=== PATIENT | male | born 1960 | race Caucasian/White ===

== ENCOUNTER 2017-03-03 04:38 | Inpatient (IN) | payer OTHER ==
[~2017-03-03] VITALS: Ht 170.2 cm; Wt 81.8 kg
[2017-03-03] VITALS (24 sets, daily range): BP systolic 80–125; BP diastolic 48–91; PULSE 43–69; RESP 13–22; Ht 170.2 cm; Wt 81.8 kg
[2017-03-03] MEDS ORDERED: SOD CHLORIDE 0.9% 500 ML IV STA (04:42)
[2017-03-03] MEDS ORDERED: ASPIRIN 81 MG TAB PO STA (04:42)
[2017-03-03 05:13] LABS: ADD SCAN DIFF NO
[2017-03-03 05:15] LABS: BASOPHIL # 0.1 10^3/ul (0.0-0.1); BASOPHILS % 0.5 % (0.0-2.0); EOSINOPHILS # 0.2 10^3/ul (0.0-0.5); EOSINOPHILS % 1.4 % (0.0-7.0); HEMATOCRIT 47.7 % (42.0-52.0); HEMOGLOBIN 15.5 g/dl (14.0-18.0); LYMPHOCYTES % 24.6 % (15.0-51.0); MEAN CORPUSCULAR HEMOGLOBIN 31.1 pg (29.0-33.0); MEAN CORPUSCULAR HGB CONC 32.5 g/dl (32.0-37.0); MEAN CORPUSCULAR VOLUME 95.6 fl (82.0-101.0); MEAN PLATELET VOLUME 12.3 fl (7.4-10.4); MONOCYTE # 0.8 10^3/ul (0.3-0.9); MONOCYTES % 6.1 % (0.0-11.0); NEUTROPHIL # 8.2 10^3/ul (1.6-7.5); NEUTROPHILS % 67.2 % (39.0-77.0); PLATELET COUNT 177 10^3/UL (140-415); RED BLOOD COUNT 4.99 10^6/ul (4.70-6.10); RED CELL DISTRIBUTION WIDTH 14.5 % (11.5-14.5); WHITE BLOOD COUNT 12.3 10^3/ul (4.8-10.8)
[2017-03-03] MEDS ORDERED: morphine 4 MG/ML VIAL IV STA ×2 (05:29→07:21)
[2017-03-03] MEDS ORDERED: NITROGLYCERIN (SL) 0.4 MG TAB SL ONE ×2 (05:30→11:30)
--- NOTE | 2017-03-03 05:50 | RADRPT ---
PROCEDURE: Chest. CLINICAL INDICATION: Chest pain. TECHNIQUE: Single frontal view of the chest was obtained. COMPARISON: None. FINDINGS: The cardiac silhouette is within normal limits. The aortic arch is unremarkable. There is no focal consolidation, vascular congestion or pleural effusion. There is no pneumothorax. IMPRESSION: No evidence for active cardiopulmonary disease. .Michael Anderson MD, MD Date Time Electronically viewed and signed by .Michael Anderson MD, on 03/03/2017 05:50 .T/
--- NOTE | 2017-03-03 05:52 | ERA ---
ER Documentation Chief Complaint Date/Time DATE: 03/03/17 TIME: 05:50 Chief Complaint c/o chest pain, heart rate at 38 and b/p in 70's according to EMS HPI This 56-year-old male brought in by paramedics for sudden onset chest pain 2 hours prior as well as a heart rate in the 20s and 30s in the ambulance which they gave 2 doses of 1 mg atropine in the ambulance which change the patient's heart rate and just prior to arrival relieved his chest pain and shortness of breath. He also had nausea with this. He has a history of stents. Denies fever and chills per ROS All systems reviewed and are negative except as per history of present illness. Medications Home Meds No Active Prescriptions or Reported Meds Allergies Allergies: Coded Allergies: No Known Allergy (Unverified , 03/03/17) PMhx/Soc History of Surgery: Yes (abdominal, stents) Anesthesia Reaction: No Hx Neurological Disorder: No Hx Respiratory Disorders: No Hx Cardiac Disorders: Yes (htn) Hx Psychiatric Problems: No Hx Miscellaneous Medical Probl: No Hx Alcohol Use: Yes (quit 20 years ago) Hx Substance Use: No Hx Tobacco Use: Yes Smoking Status: Current every day smoker Physical Exam Vitals Vital Signs Date Time Temp Pulse Resp B/P Pulse Ox O2 Delivery O2 Flow Rate FiO2 03/03/17 05:54 81 18 119/83 98 Room Air 03/03/17 05:05 98.0 100 22 134/80 100 03/03/17 04:58 Nasal Cannula 2 Physical Exam Const: [] Mild distress, appears uncomfortable Head: Atraumatic Eyes: Normal Conjunctiva ENT: Normal External Ears, Nose and Mouth. Neck: Full range of motion..~ No meningismus. Resp: Clear to auscultation bilaterally Cardio: Regular tachycardia, no murmurs Abd: Soft, non tender, non distended. Normal bowel sounds Skin: No petechiae or rashes Back: No midline or flank tenderness Ext: No cyanosis, or edema Neur: Awake and alert and oriented 3, no focal deficits Psych: Normal Mood and Affect Result Diagram: 03/03/17 0450 03/03/17 0454 Results 24 hrs Laboratory Tests Test 03/03/17 04:50 03/03/17 04:54 White Blood Count 12.310^3/ul Red Blood Count 4.9910^6/ul Hemoglobin 15.5g/dl Hematocrit 47.7% Mean Corpuscular Volume 95.6fl Mean Corpuscular Hemoglobin 31.1pg Mean Corpuscular Hemoglobin Concent 32.5g/dl Red Cell Distribution Width 14.5% Platelet Count 95097^3/UL Mean Platelet Volume 12.3fl Neutrophils % 67.2% Lymphocytes % 24.6% Monocytes % 6.1% Eosinophils % 1.4% Basophils % 0.5% Nucleated Red Blood Cells % 0.0/100WBC Neutrophils # 8.210^3/ul Lymphocytes # 3.010^3/ul Monocytes # 0.810^3/ul Eosinophils # 0.210^3/ul Basophils # 0.110^3/ul Nucleated Red Blood Cells # 0.010^3/ul Prothrombin Time 13.1Sec Prothrombin Time Ratio 1.0 INR International Normalized Ratio 0.99 Activated Partial Thromboplast Time 27.3Sec Sodium Level 139mmol/L Potassium Level 4.4mmol/L Chloride Level 112mmol/L Carbon Dioxide Level 21mmol/L Anion Gap 10 Blood Urea Nitrogen 19mg/dl Creatinine 1.37mg/dl Glucose Level 114mg/dl Calcium Level 8.5mg/dl Troponin I 0.344ng/ml B-Type Natriuretic Peptide 276PG/ML Current Medications Medications (Trade) Dose Ordered Sig/Pedro Route PRN Reason Start Time Stop Time Status Last Admin Dose Admin Sodium Chloride (NS) 500 ml @ 500 mls/hr Q1H STAT IV 03/03/17 04:42 03/03/17 05:41 DC 03/03/17 04:48 Aspirin (Aspirin) 162 mg ONCE STAT PO 03/03/17 04:42 03/03/17 04:43 DC 03/03/17 04:47 Nitroglycerin (Nitroglycerin (Sl Tab) 0.4 Mg) 1 tab ONCE ONCE SL 03/03/17 05:30 03/03/17 05:31 DC 03/03/17 05:21 Morphine Sulfate (morphine) 4 mg ONCE STAT IV 03/03/17 05:29 03/03/17 05:30 DC 03/03/17 05:47 Ondansetron HCl (Zofran Inj) 4 mg ER BRIDGE PRN IV NAUSEA AND/OR VOMITING 03/03/17 07:00 03/04/17 06:59 Acetaminophen (Tylenol Tab) 650 mg ER BRIDGE PRN PO MILD PAIN/FEVER 03/03/17 07:00 03/04/17 06:59 Procedures/MDM Pain with concerning chest pain with mild troponin elevation. Had critical vital signs in route in the paramedics corrected them. His vital signs remained stable during his ER course but this is concerning for possible cardiac injury. Troponins will be trended. I did give the patient aspirin and I am going to start heparinizing him out of high risk scenario for myocardial infarction. He was also given nitroglycerin and morphine for his pain. She has had no further critical episodes and emergency room during his observation period of greater than 2 hours here I believe the is appropriate to be admitted to telemetry and receive a further cardiac workup. Be admitted to telemetry. I spoke with Dr. Carias who admitting the patient. EKG interpretation: Sinus tachycardia rate of 105, normal axis, no ST or T-wave changes concerning for acute ischemia, normal intervals. playground monitor interpretation: Initial sinus tachycardia followed by normal sinus rhythm. No other arrhythmias Chest x-ray interpretation: See no acute process, no pneumothorax, no fracture, no widened mediastinum, no infiltrate Departure Diagnosis: Primary Impression: Non-STEMI (non-ST elevated myocardial infarction) Additional Impressions: Symptomatic bradycardia Renal insufficiency Condition: Serious GATITO MORENO DO Mar 03, 2017 05:52
[2017-03-03 06:25] LABS: POTASSIUM 4.4 mmol/L (3.5-5.1)
[2017-03-03 06:25] LABS: INR 0.99; PROTIME 13.1 Sec (12.2-14.2)
[2017-03-03 06:26] LABS: CALCIUM 8.5 mg/dl (8.4-10.2); CREATININE 1.37 mg/dl (0.61-1.24)
[2017-03-03 06:26] LABS: PARTIAL THROMBOPLASTIN TIME 27.3 Sec (25.0-35.0)
[2017-03-03 06:50] LABS: TROPONIN-I 0.344 ng/ml (0.00-0.12)
[2017-03-03] MEDS ORDERED: ONDANSETRON 4 MG INJ IV PRN ×3 (07:00→15:30)
[2017-03-03] MEDS ORDERED: ACETAMINOPHEN 325 MG TAB PO PRN ×2 (07:00→11:00)
[2017-03-03] MEDS ORDERED: HEPARIN 25000 UNITS/250 ML 250 ML IV STA (07:14)
[2017-03-03] MEDS ORDERED: HEPARIN 1000 UNITS/ML 10 ML INJ IV STA (07:14)
[2017-03-03] MEDS ORDERED: SOD CHLORIDE 0.9% 1,000 ML IV SCH ×2 (09:00→15:12)
--- NOTE | 2017-03-03 09:39 | CONS ---
Date/Time of Note Date/Time of Note DATE: 03/03/17 TIME: 09:30 Assessment/Plan Assessment/Plan Chief Complaint/Hosp Course NSTEMI: Trop elevation (0.3) in setting of chest pain. Needs cardiac cath for coronary evaluation. No further chest pain now. I checked on the pt and he is sleeping Bradycardia/hypotension: By history appears to be a vagal reaction to his pain. However an RCA lesion could also potentially explain it. Congenital solitary kidney with CKD:aware of risk of JOVANI with cardiac cath and wishes to proceed CAD s/p prior PCI HTN -ASA, lipitor -no beta darion with reported bradycardia -heparin drip -NTG drip if recurrent chest pain -IVF prior to cath -cath today at 2pm -echo -trend trops Problems: Consultation Date/Type/Reason Admit Date/Time Date of Consultation: Mar 03, 2017 Type of Consultation: Cardiology Reason for Consultation Chest pain, NSTEMI Referring Provider: ALYSSA MOHR Hx of Present Illness 56 yo M with a h/o CAD s/p PCI 10 yrs ago, congenital solitary kidney with CKD, HTN, active smoker, who presented with chest pain. The pain started yesterday evening after he had a soda. He thought it was related to that but it did not go away. He feels substernal chest pressure radiating to his left shoulder. The pain is now resolved after morphine, NTG, heparin drip. The pain is similar to his prior episode before the stent. He only takes ASA. No other meds. Still smokes 1/2-1 ppd. Of note during the ambulance ride he notes that he started to feel nauseated, sweaty, and dizzy. Apparently his HR dropped to the 30s and SBP 70s and resolved after IV fluids and atropine. Currently HR 60s. No SOB. No prior syncope. per HPI Past Medical History per HPI Social History Smoking Status: Current every day smoker Exam/Review of Systems Vital Signs Vitals Vital Signs Date Time Temp Pulse Resp B/P Pulse Ox O2 Delivery O2 Flow Rate FiO2 03/03/17 07:38 61 16 129/75 100 Nasal Cannula 2.0 03/03/17 05:05 98.0 Exam Constitutional: alert, oriented Psych: nl mood/affect, no complaints Head: atraumatic, normocephalic Neck: No jvd Respiratory: clear to auscultation, No crackles/rales Cardiovascular: regular rate and rhythm, No edema Gastrointestinal: non-tender, soft Neurological: nl mental status, nl speech Results NSR, nonspecific IVCD, no significant ST changes. Result Diagram: 03/03/17 0450 03/03/17 0454 Results 24 hrs Laboratory Tests Test 03/03/17 04:50 03/03/17 04:54 White Blood Count 12.3 H Red Blood Count 4.99 Hemoglobin 15.5 Hematocrit 47.7 Mean Corpuscular Volume 95.6 Mean Corpuscular Hemoglobin 31.1 Mean Corpuscular Hemoglobin Concent 32.5 Red Cell Distribution Width 14.5 Platelet Count 177 Mean Platelet Volume 12.3 H Neutrophils % 67.2 Lymphocytes % 24.6 Monocytes % 6.1 Eosinophils % 1.4 Basophils % 0.5 Nucleated Red Blood Cells % 0.0 Neutrophils # 8.2 H Lymphocytes # 3.0 H Monocytes # 0.8 Eosinophils # 0.2 Basophils # 0.1 Nucleated Red Blood Cells # 0.0 Prothrombin Time 13.1 Prothrombin Time Ratio 1.0 INR International Normalized Ratio 0.99 Activated Partial Thromboplast Time 27.3 Sodium Level 139 Potassium Level 4.4 Chloride Level 112 H Carbon Dioxide Level 21 Anion Gap 10 Blood Urea Nitrogen 19 Creatinine 1.37 H Glucose Level 114 Calcium Level 8.5 Troponin I 0.344 *H B-Type Natriuretic Peptide 276 H Medications Medications Current Medications Sodium Chloride (NS) 1,000 ml @ 150 mls/hr Q6H40M IV Last administered on 03/03 09:25; Admin Dose 150 MLS/HR; Start 03/03/17 at 09:00 VERO GROVES Mar 03, 2017 09:39
[2017-03-03] MEDS ORDERED: ATORVASTATIN 40 MG TAB PO ONE (10:00)
[2017-03-03] MEDS ORDERED: morphine 2 MG INJ IV PRN ×4 (11:00→23:30)
[2017-03-03] MEDS ORDERED: MAGNESIUM HYDROXIDE 30ML CUP PO PRN (11:00)
[2017-03-03] MEDS ORDERED: hydrALAzine 20 MG INJ IV PRN (11:00)
[2017-03-03] MEDS ORDERED: NACL 0.9% 3 ML SYG IV SCH (11:00)
[2017-03-03] MEDS ORDERED: BISACODYL (EC) 5 MG TAB PO PRN (11:00)
--- NOTE | 2017-03-03 11:04 | HP ---
Date/Time of Note Date/Time of Note DATE: 03/03/17 TIME: 10:59 Assessment/Plan VTE Prophylaxis VTE Prophylaxis Intervention: heparin Lines/Catheters IV [facility]from [facility] [place] Assessment/Plan Chief Complaint/Hosp Course 1. NSTEMI. The patient will be continued on heparin drip. The patient was evaluated by cardiology. The patient is scheduled for a left heart catheterization later today. Patient will be continued on aspirin. 2. Chronic kidney disease. The patient will be adequately hydrated. Nephrotoxic drugs will be used with caution. Will involve nephrology on the case since the patient is going for a left heart catheterization that involves IV dye use. 3. Sinus bradycardia. Etiology unclear. Will avoid any AV chris blocking agents. Will monitor closely. Cardiology following. 4. Nicotine use. Cessation will be advised. 5. Leukocytosis. Probably reactive. The patient remains afebrile. Chest x- ray negative for any acute infiltrates. Plan: The patient will be admitted to inpatient telemetry floor. The patient will be kept n.p.o. except for medications. The patient will be started on DVT prophylaxis and gastrointestinal prophylaxis. The patient will remain a full code. Activities will be bedrest. The rest of the patient's management will be based on the clinical course, input from consultants, and the results of diagnostic studies. Based on the patient's clinical presentation, he most probably requires at least 2 midnights' stay for further management and evaluation of his clinical presentation. The case and management of this patient was fully discussed with Dr. Caldwell. Problems: HPI/ROS Admit Date/Time Admit Date/Time Hx of Present Illness Reason for admission: Chest pain. Consultants 1. Moises Mcgowan MD, Cardiology. 2. Svetlana Bailey DO, Nephrology. This is a 56-year-old male with past medical history of CAD status post percutaneous coronary intervention approximately 10 years ago and chronic kidney disease secondary to unilateral nephrectomy and creation of a Kock's pouch. He started having chest pain that was described as substernal rated as 7 /10 with radiation to the left arm with associated nausea and diaphoresis. He called the paramedics and was brought to the emergency room. As per reports, he was hypotensive and he had significant bradycardia with a heart rate as low in the 30s that was resolved after IV fluids and atropine. The patient denied any dyspnea. He denied any abdominal pain. In the emergency room, the patient was noticed to have a troponin level of 0.344. The patient's 12-lead EKG showed a normal sinus rhythm. The patient was started on a heparin drip. He was given a single dose of aspirin. ROS Constitutional: diaphoresis Eyes: no complaints ENT: no complaints Respiratory: no complaints Cardiovascular: chest pain Gastrointestinal: nausea Genitourinary: no complaints Musculoskeletal: no complaints Skin: no complaints Neurologic: no complaints Endocrine: no complaints Lymphatic: no complaints Psychological: nl mood/affect, no complaints Immunologic: no complaints PMH/Family/Social Past Medical History Medical History: coronary artery disease, renal disease (CKD) Past Surgical History Past Surgical Hx: other (Left nephrectomy, bladder reconstruction with Benito's pouch placement) Family History Significant Family History: hypertension Social History Works with [employer]. Alcohol Use: none Smoking Status: Current every day smoker Drug Use: marijuana Exam/Review of Systems Vital Signs Vitals Vital Signs Date Time Temp Pulse Resp B/P Pulse Ox O2 Delivery O2 Flow Rate FiO2 03/03/17 07:38 61 16 129/75 100 Nasal Cannula 2.0 03/03/17 05:05 98.0 Exam Exam General: Adequately build 56 year-old male lying in bed in no apparent distress. HEENT: Normocephalic, atraumatic. Eyes: Anicteric sclerae, conjunctivae clear. ENT: Nasal septum midline, oral mucosa moist. Neck supple, no JVD noticed. Respiratory: Bilaterally clear breath sounds. No use of accessory muscles of respiration. No adventitious breath sounds. Cardiovascular: S1, S2 heard. No murmurs or gallops. Abdomen: Soft, nontender, and nondistended. Bowel sounds positive in all 4 quadrants. Genitourinary: Right inguinal area opening for Benito's pouch. Extremities: No cyanosis, no clubbing, no edema. Peripheral pulses palpable. Neurologic: Cranial nerves II through XII grossly intact. The patient is awake, alert, and oriented. Skin: Normal skin turgor. No skin rashes. Labs Result Diagram: 03/03/17 0450 03/03/17 0454 Medications Medications Current Medications Sodium Chloride (NS) 1,000 ml @ 150 mls/hr Q6H40M IV Last administered on 03/03t 09:25; Admin Dose 150 MLS/HR; Start 03/03/17 at 09:00 Ondansetron HCl (Zofran Inj) 4 mg Q6H PRN IV NAUSEA AND/OR VOMITING; Start at 11:00 Aspirin (Aspirin) 81 mg DAILY PO ; Start 03/04/17 at 09:00 Acetaminophen (Tylenol Tab) 650 mg Q6H PRN PO PAIN LEVEL 1-3 OR FEVER; Start at 11:00 Acetaminophen/ Hydrocodone Bitart ([place] (5/325)) 1 tab Q6H PRN PO PAIN LEVEL 4 -6; Start 03/03/17 at 11:00 Morphine Sulfate (morphine) 2 mg Q4H PRN IV PAIN LEVEL 7-10; Start 03/03/17 at 11:00 Magnesium Hydroxide (Milk Of Mag) 30 ml DAILY PRN PO CONSTIPATION; Start at 11:00 Bisacodyl (Dulcolax) 5 mg DAILY PRN PO CONSTIPATION; Start 03/03/17 at 11:00 Pantoprazole (Protonix Tab) 40 mg DAILY@06 PO ; Start 03/04/17 at 06:00 Hydralazine HCl (Apresoline) 10 mg Q6H PRN IV SBP>160; Start 03/03/17 at 11:00 ; Status UNV Procedures Procedures CXR IMPRESSION: No evidence for active cardiopulmonary disease. ELKE GERARD NP Mar 03, 2017 11:04
[2017-03-03 11:49] LABS: CHOL/HDL RATIO 5.3 RATIO
[2017-03-03] MEDS ORDERED: ATROPINE 1 MG/10 ML SYRINGE ONE (12:12)
[2017-03-03] MEDS ORDERED: ATROPINE 0.4 MG INJ IV ONE (12:30)
[2017-03-03 13:12] LABS: CK-MB 21.9 ng/ml (0.0-2.4); TROPONIN-I 2.54 ng/ml (0.00-0.12)
[2017-03-03] MEDS ORDERED: VERAPAMIL 5 MG INJ ONE ×2 (13:18→14:41)
[2017-03-03] MEDS ORDERED: NITROGLYCERIN (IC) 100 MCG/ML INJ ONE (13:18)
[2017-03-03] MEDS ORDERED: LIDOCAINE 1% (MDV) 20 ML INJ ONE (13:18)
[2017-03-03] MEDS ORDERED: FENTAnyl 50 MCG/ML VIAL ONE (13:18)
[2017-03-03] MEDS ORDERED: MIDAZOLAM 1 MG/ML 2 ML INJ ONE (13:18)
[2017-03-03] MEDS ORDERED: HEPARIN 1000 UNITS/ML 10 ML INJ ONE (13:18)
[2017-03-03] MEDS ORDERED: HEPARIN 1000 UNITS/NS (A-LINE) 1,000 ML ONE (13:18)
[2017-03-03] MEDS ORDERED: BIVALIRUDIN 250MG /NS 50 ML 50 ML IVPB ONE (14:30)
[2017-03-03] MEDS ORDERED: TICAGRELOR 90 MG TABLET ONE (14:30)
--- NOTE | 2017-03-03 14:31 | CONS ---
Date/Time of Note Date/Time of Note DATE: 03/03/17 TIME: 14:23 Assessment/Plan Assessment/Plan Chief Complaint/Hosp Course 1. Possible AK I/ chronic kidney disease in setting of solitary kidney, with unknown baseline creatinine -We will check UA with microanalysis check urine lites check renal ultrasound -Patient is scheduled for cardiac catheterization has moderate risk factors for contrast associated nephropathy -Recommendation would be to hydrate patient prior to procedure -We will check a urinalysis urine lytes -Monitor renal function closely 2. Anemia -Monitor H&H levels 3. Mineral bone disorder -Monitor calcium phosphorus levels 4. History of congenital atrophic kidney status post nephrectomy 5. Non-STEMI -Patient's pending cardiac catheterization Continue current medical management 6. Hypotension -Possibly due to underlying [place] -Continue gentle hydration monitor closely 7. History of coronary disease Continue medical management Thank you for this interesting consult pleasure follow patient with you throughout hospital course Problems: Consultation Date/Type/Reason Admit Date/Time Reason for Consultation CKD Hx of Present Illness 56 yo M with a h/o CAD s/p PCI 10 yrs ago, CKD with solitary kidney, HTN, active smoker, who presented with chest pain. The pain started yesterday evening after he had a soda. He thought it was related to that but it did not go away. He feels substernal chest pressure radiating to his left shoulder. The pain is now resolved after morphine, NTG, heparin drip. The pain is similar to his prior episode before the stent. He only takes ASA. No other meds. Still smokes 1/2-1 ppd. Terms patient's renal history. 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 Patient also had history of recurrent renal stone. No hematuria no frothy urine. Patient does not know what his baseline renal function is Per HPI Eyes: no complaints ENT: no complaints Respiratory: no complaints Cardiovascular: chest pain Gastrointestinal: nausea Genitourinary: no complaints Musculoskeletal: no complaints Skin: no complaints Neurologic: no complaints Lymphatic: no complaints Psychological: nl mood/affect, no complaints Immunologic: no complaints Past Medical History Coronary disease, CKD, Medical History: renal disease (CKD) Past Surgical History ther (Left nephrectomy, bladder reconstruction with Benito's pouch placement) Past Surgical Hx: other (Left nephrectomy, bladder reconstruction with Benito's pouch placement) Social History Alcohol Use: none Smoking Status: Current every day smoker Drug Use: marijuana Exam/Review of Systems Vital Signs Vitals Vital Signs Date Time Temp Pulse Resp B/P Pulse Ox O2 Delivery O2 Flow Rate FiO2 03/03/17 12:27 64 13 100/66 100 Room Air 03/03/17 07:38 2.0 03/03/17 05:05 98.0 Exam Constitutional: alert, oriented Psych: nl mood/affect, no complaints Head: atraumatic, normocephalic Neck: No jvd Respiratory: clear to auscultation, No crackles/rales Cardiovascular: regular rate and rhythm, No edema Gastrointestinal: non-tender, soft Neurological: nl mental status, nl speech Results Result Diagram: 03/03/17 0450 03/03/17 0454 Results 24 hrs Laboratory Tests Test 03/03/17 04:50 03/03/17 04:54 03/03/17 05:40 03/03/17 09:21 White Blood Count 12.3 H Red Blood Count 4.99 Hemoglobin 15.5 Hematocrit 47.7 Mean Corpuscular Volume 95.6 Mean Corpuscular Hemoglobin 31.1 Mean Corpuscular Hemoglobin Concent 32.5 Red Cell Distribution Width 14.5 Platelet Count 177 Mean Platelet Volume 12.3 H Neutrophils % 67.2 Lymphocytes % 24.6 Monocytes % 6.1 Eosinophils % 1.4 Basophils % 0.5 Nucleated Red Blood Cells % 0.0 Neutrophils # 8.2 H Lymphocytes # 3.0 H Monocytes # 0.8 Eosinophils # 0.2 Basophils # 0.1 Nucleated Red Blood Cells # 0.0 Prothrombin Time 13.1 Prothrombin Time Ratio 1.0 INR International Normalized Ratio 0.99 Activated Partial Thromboplast Time 27.3 Hemoglobin A1c 5.9 Sodium Level 139 Potassium Level 4.4 Chloride Level 112 H Carbon Dioxide Level 21 Anion Gap 10 Blood Urea Nitrogen 19 Creatinine 1.37 H Glucose Level 114 Calcium Level 8.5 Troponin I 0.344 *H 1.210 *H B-Type Natriuretic Peptide 276 H Triglycerides Level 55 Cholesterol Level 199 LDL Cholesterol, Calculated 151 HDL Cholesterol 37 Cholesterol/HDL Ratio 5.3 Thyroid Stimulating Hormone (TSH) 2.320 Free Thyroxine 1.13 Test 03/03/17 12:06 Creatine Kinase 378 H Creatine Kinase Index 5.8 Creatinine Kinase MB (Mass) 21.90 H Troponin I 2.540 *H Medications Medications Current Medications Sodium Chloride (NS) 1,000 ml @ 150 mls/hr Q6H40M IV Last administered on 03/03 09:25; Admin Dose 150 MLS/HR; Start 03/03/17 at 09:00 Ondansetron HCl (Zofran Inj) 4 mg Q6H PRN IV NAUSEA AND/OR VOMITING Last administered on 03/03/17 11:14; Admin Dose 4 MG; Start 03/03/17 at 11:00 Aspirin (Aspirin) 81 mg DAILY PO ; Start 03/04/17 at 09:00 Acetaminophen (Tylenol Tab) 650 mg Q6H PRN PO PAIN LEVEL 1-3 OR FEVER; Start at 11:00 Acetaminophen/ Hydrocodone Bitart ([place] (5/325)) 1 tab Q6H PRN PO PAIN LEVEL 4 -6; Start 03/03/17 at 11:00 Morphine Sulfate (morphine) 2 mg Q4H PRN IV PAIN LEVEL 7-10; Start 03/03/17 at 11:00 Magnesium Hydroxide (Milk Of Mag) 30 ml DAILY PRN PO CONSTIPATION; Start at 11:00 Bisacodyl (Dulcolax) 5 mg DAILY PRN PO CONSTIPATION; Start 03/03/17 at 11:00 Pantoprazole (Protonix Tab) 40 mg DAILY@06 PO ; Start 03/04/17 at 06:00 Hydralazine HCl (Apresoline) 10 mg Q6H PRN IV SBP>160; Start 03/03/17 at 11:00 DICK HARVEY DO Mar 03, 2017 14:31
[2017-03-03] MEDS ORDERED: EPTIFIBATIDE 100 ML IV ONE (15:02)
[2017-03-03] MEDS ORDERED: EPTIFIBATIDE 20 ML ONE (15:02)
[2017-03-03] MEDS ORDERED: EPTIFIBATIDE 100 ML IV SCH (15:30)
--- NOTE | 2017-03-03 15:49 | OPR ---
Date/Time of Note Date/Time of Note DATE: 03/03/17 TIME: 15:15 Operative Report Free Text/Dictation Procedure Date: 03/03/2017 Procedures Performed: 1)Left heart catheterization with selective left and right coronary angiography. 2)Balloon angioplasty of the distal vessel with MARIANO 1 flow due to heavy thrombus burden Pre-operative Diagnosis:NSTEMI Post-operative Diagnosis:NSTEMI Indications:56 yo M with a h/o CAD s/p prior PCI who presented with chest pain and was found to have an NSTEMI (trop 2). The chest pain had started ~18 hours ago. Description of Procedure: After informed consent, the patient was brought to the cardiac catheterization lab. The procedure site was prepped and draped in usual manner. The patient was premedicated with versed 2mg and fentanyl 50 mcg. 6 mL lidocaine was injected into the right groin and 2 mL in the right wrist. A 4 [place] venous sheath was inserted into the right femoral vein via [place]. Next using the posterior wall technique, the 6/5 [place] sheath was inserted into the right radial artery. Next using the JL3.5 and JR4, selective angiography of the left and right coronary arteries were obtained. The decision was made to proceed with PCI of the distal Cx as this was the culprit of the NSTEMI. A JL 3.5 guide was advanced and engaged into the left coronary artery. After appropriate anticoagulation and antiplatelets were given , the BMW angioplasty wire was advanced past the lesion. Next the 2.0 X 12 balloon was used to dilate the lesion times 2 at a maximum of 8 clarissa. There was visualization of a longer segment of the vessel but distally there was still no flow due to heavy thrombus burden. The wire was repositioned and thought to be in the true lumen as it was moving freely. First dottering was used and was unsuccessful. Then a 1.2 balloon was used tyo dilate the distal segment times 5 as the vessel appeared to taper to a <1mm vessel (though likely underfilled and spastic). IN the meantime multiple rounds of NTG and verapamil were given IC without improvement. Eventually a 2.0 balloon was used to dilate the distal vessel prior to where it appeared to taper and again there was no significant flow. As the vessel was very small distally the risk of a thrombectomy device was high and as the pt was asymptomatic, the decision was made to treat with integrilin for 18 hours. The vessel was not stented as MARIANO 3 flow could not be established and the stent would likely thrombose. Final angiography without the wire showed MARIANO 1 flow to a small vessel distally and likely heavy thrombus burden. Next all equipment was removed and hemostasis was achieved by TR band Findings: Anatomy/Hemodynamics: Left main:normal LAD:mid 30% Diagonal:ostial 40%, prox stent patent Circumflex:dominant vessel with mid stent 30% ISR and distal 100% which appeared acute Obtuse marginal: normal RCA:small nondominant with prox 50% PDA: from Cx, no flow seen as distal Cx occluded LV angiography:not done LV not entered Contrast used:60 mL Fluoroscopy time: 11.3 min Medications used: Versed 2mg Fentanyl 50mcg radial cocktail (heparin 2000 units as was on heparin drip, verapamil 2.5mcg, NTG 200) NTG 100mcg x 3 IC verapamil 150 x3 IC Angiomax bolus plus drip Integrilin bolus plus infusion at end of case once angiomax was stopped Equipment used: 6 [place] JL3.5 guide BMW angioplasty wire 2 x 12 balloon 1.2 x 12 balloon Assessment: NSTEMI: Cath with distal Cx occlusion. Heavy thrombus burden and only able to establish MARIANO [address] on Integrilin drip overnight CAD: as above s/p POBA but MARIANO 3 flow was not established Plan: -ICU observation -integrilin x 18 hours -ASA, ticagrelor -lipitor -possibly star imdur tomorrow if symptoms -if pt with symptoms post integrilin, may need to bring back for repeat cath in case there is better flow VERO GROVES Mar 03, 2017 15:31
--- NOTE | 2017-03-03 16:48 | RADRPT ---
Vent Rate: 51 bpm RR Interval: 0 msec [place] Interval: 144 msec QRS Duration: 88 msec QT Interval: 438 msec QTC Interval: 403 msec P-R-T [place]: 45 - 70 - -24 degrees Sinus bradycardia Cannot rule out Inferior infarct , age undetermined Abnormal ECG Electronically Signed By: Vincent Yu [id number]
--- NOTE | 2017-03-03 17:19 | QN ---
Documentation Comment Right radial access site with small hematoma. Mild tenderness. Good pulses. Manual compression and JOHN bandage VERO GROVES Mar 03, 2017 17:19
[2017-03-03] MEDS: HYDROCODONE/APAP (5/325) TAB PO PRN (18:57)
[2017-03-03 19:01] LABS: TROPONIN-I 10.4 ng/ml (0.00-0.12)
[2017-03-03] MEDS: TICAGRELOR 90 MG TABLET PO SCH (21:14)
--- NOTE | 2017-03-03 23:00 | RADRPT ---
PROCEDURE: Renal US. CLINICAL INDICATION: Renal dysfunction. History of left nephrectomy. TECHNIQUE: Multiple sonographic images of the kidneys and urinary bladder were obtained. The imag es were reviewed on a PACS workstation. COMPARISON: No prior studies are available for comparison. FINDINGS: The right kidney measures 12.7 cm. The left kidney is surgically absent. There is no right renal mass or calculus. There is moderate right hydronephrosis with no obstructing lesion visualized. Right renal parenchymal thickness and echogenicity is normal. The right perirenal region is normal with no fluid collection or mass. The urinary bladder is unremarkable. IMPRESSION: 1. Status post left nephrectomy. 2. Moderate right hydronephrosis. 3. Otherwise normal renal ultrasound. RPTAT: QQ .Aubrey Arzola MD, Date Time Electronically viewed and signed by .Aubrey Arzola MD, on 03/03/2017 23:00 .R/
[2017-03-04] VITALS (27 sets, daily range): BP systolic 95–139; BP diastolic 55–100; PULSE 35–78; RESP 13–23
[2017-03-04 05:02] LABS: ADD SCAN DIFF NO
[2017-03-04 05:12] LABS: BASOPHILS % 0.3 % (0.0-2.0); EOSINOPHILS # 0.1 10^3/ul (0.0-0.5); HEMOGLOBIN 13.8 g/dl (14.0-18.0); LYMPHOCYTES # 2.3 10^3/ul (0.8-2.9); LYMPHOCYTES % 17.5 % (15.0-51.0); MEAN CORPUSCULAR HGB CONC 32.9 g/dl (32.0-37.0); MEAN CORPUSCULAR VOLUME 94.4 fl (82.0-101.0); MEAN PLATELET VOLUME 11.9 fl (7.4-10.4); MONOCYTE # 0.9 10^3/ul (0.3-0.9); MONOCYTES % 6.9 % (0.0-11.0); NEUTROPHIL # 9.8 10^3/ul (1.6-7.5); NEUTROPHILS % 73.9 % (39.0-77.0); NUCLEATED RED BLOOD CELLS% 0.2 /100WBC (0.0-0.0); PLATELET COUNT 176 10^3/UL (140-415); RED BLOOD COUNT 4.45 10^6/ul (4.70-6.10); RED CELL DISTRIBUTION WIDTH 14.6 % (11.5-14.5); WHITE BLOOD COUNT 13.2 10^3/ul (4.8-10.8)
[2017-03-04] MEDS: PANTOPRAZOLE (EC) 40 MG TAB PO SCH (05:49)
[2017-03-04 08:46] LABS: MAGNESIUM 1.9 mg/dl (1.7-2.5); PHOSPHORUS 2.4 mg/dl (2.5-4.9)
[2017-03-04 08:51] LABS: TROPONIN-I 10.4 ng/ml (0.00-0.12)
[2017-03-04 09:08] LABS: ALBUMIN 3.8 g/dl (3.3-4.9); ALBUMIN/GLOBULIN RATIO 1.8; BILIRUBIN,INDIRECT 0.6 mg/dl (0-1.1); BILIRUBIN,TOTAL 0.6 mg/dl (0.2-1.3); CALCIUM 8.5 mg/dl (8.4-10.2); CREATININE 1.21 mg/dl (0.61-1.24); POTASSIUM 4.2 mmol/L (3.5-5.1); TOTAL PROTEIN 5.9 g/dl (6.1-8.1)
--- NOTE | 2017-03-04 09:08 | CONS ---
Date/Time of Note Date/Time of Note DATE: 03/04/17 TIME: 09:05 Consult Date/Type/Reason Admit Date/Time Initial Consult Date 03/03/17 Type of Consultation: nephrology Ordering Provider: ALYSSA MOHR pt. s/p left heart cath. urine studies pending. renal us with solitary kidney, mild right hydro?? Objective Vital Signs Date Time Temp Pulse Resp B/P Pulse Ox O2 Delivery O2 Flow Rate FiO2 03/04/17 06:00 50 15 116/69 96 Room Air 03/04/17 04:00 98.4 03/03/17 07:38 2.0 Intake and Output 03/03/17 03/03/17 03/04/17 15:00 23:00 07:00 Intake Total 1534.632 ml 267.178 ml Output Total 300 ml 1100 ml Balance 1234.632 ml -832.822 ml Exam Exam Constitutional: alert, oriented Psych: nl mood/affect, no complaints Head: atraumatic, normocephalic Neck: No jvd Respiratory: clear to auscultation, No crackles/rales Cardiovascular: regular rate and rhythm, No edema Gastrointestinal: non-tender, soft Neurological: nl mental status, nl speech Results/Medications Result Diagram: 03/04/17 0447 03/03/17 0454 Results 24 hrs Laboratory Tests Test 03/03/17 09:21 03/03/17 12:06 03/03/17 18:10 03/04/17 04:47 Troponin I 1.210 *H 2.540 *H 10.400 *H Creatine Kinase 378 H 545 H Creatine Kinase Index 5.8 6.8 Creatinine Kinase MB (Mass) 21.90 H 37.00 H White Blood Count 13.2 H Red Blood Count 4.45 L Hemoglobin 13.8 L Hematocrit 42.0 Mean Corpuscular Volume 94.4 Mean Corpuscular Hemoglobin 31.0 Mean Corpuscular Hemoglobin Concent 32.9 Red Cell Distribution Width 14.6 H Platelet Count 176 Mean Platelet Volume 11.9 H Neutrophils % 73.9 Lymphocytes % 17.5 Monocytes % 6.9 Eosinophils % 1.0 Basophils % 0.3 Nucleated Red Blood Cells % 0.2 H Neutrophils # 9.8 H Lymphocytes # 2.3 Monocytes # 0.9 Eosinophils # 0.1 Basophils # 0.0 Nucleated Red Blood Cells # 0.0 Test 03/04/17 08:05 Phosphorus Level 2.4 L Magnesium Level 1.9 Troponin I 10.400 *H Medications Current Medications Aspirin (Aspirin) 81 mg DAILY PO ; Start 03/04/17 at 09:00 Acetaminophen (Tylenol Tab) 650 mg Q6H PRN PO PAIN LEVEL 1-3 OR FEVER; Start at 11:00 Acetaminophen/ Hydrocodone Bitart ([place] (5/325)) 1 tab Q6H PRN PO PAIN LEVEL 4 -6 Last administered on 03/03/17 18:57; Admin Dose 1 TAB; Start 03/03/17 at 11: 00 Magnesium Hydroxide (Milk Of Mag) 30 ml DAILY PRN PO CONSTIPATION; Start at 11:00 Bisacodyl (Dulcolax) 5 mg DAILY PRN PO CONSTIPATION; Start 03/03/17 at 11:00 Pantoprazole (Protonix Tab) 40 mg DAILY@06 PO Last administered on 03/04/17 05 :49; Admin Dose 40 MG; Start 03/04/17 at 06:00 Hydralazine HCl 10 mg 10 mg Q6H PRN IV SBP>160; Start 03/03/17 at 11:00 Eptifibatide (Integrilin) 100 ml @ 2.454 mls/ hr Q24H IV Last administered on 03/03/17 15:30; Admin Dose 2.454 MLS/HR; Start 03/03/17 at 15:30 Morphine Sulfate (morphine) 2 mg Q2H PRN IV FOR NON CARDIAC PAIN (4-10); Start 03/03/17 at 15:30 Ondansetron HCl (Zofran Inj) 4 mg Q4H PRN IV NAUSEA AND/OR VOMITING; Start at 15:30 Ticagrelor (Brilinta) 90 mg BID PO Last administered on 03/03/17 21:14; Admin Dose 90 MG; Start 03/03/17 at 21:00 Morphine Sulfate (morphine) 1 mg Q6H PRN IV PAIN Last administered on 23:35; Admin Dose 1 MG; Start 03/03/17 at 23:30 Assessment/Plan Chief Complaint/Hosp Course 1. Possible AK I/ chronic kidney disease in setting of solitary kidney, with unknown baseline creatinine.. -We will check UA with microanalysis check urine lytes, renal us noted with mild hydro? significance. -Patient is postr cardiac catheterization and has moderate risk factors for contrast associated nephropathy, follow uop and lytes closely. -cont hydration. -We will check a urinalysis urine lytes -avoid nsaids, no acei or diuretics for now if possible. 2. Anemia -Monitor H&H levels 3. Mineral bone disorder -Monitor calcium phosphorus levels 4. History of congenital atrophic kidney status post nephrectomy 5. Non-STEMI -Patient post cath. Continue current medical management 6. Hypotension -Possibly due to underlying [place] -Continue gentle hydration monitor closely 7. History of coronary disease Continue medical management Problems: ASHA REILLY MD Mar 04, 2017 09:08
[2017-03-04] MEDS: ASPIRIN 81 MG TAB PO SCH (09:13)
[2017-03-04] MEDS: TICAGRELOR 90 MG TABLET PO SCH ×2 (09:13→20:52)
--- NOTE | 2017-03-04 10:55 | CONS ---
Date/Time of Note Date/Time of Note DATE: 03/04/17 TIME: 10:48 Assessment/Plan Assessment/Plan Chief Complaint/Hosp Course NSTEMI: Trop peaked at 10. Cath with occluded distal Cx supplying a small PDA. Unfortunately there was heavy thrombus burden and only MARIANO 1 flow at the end. S /p integrilin drip. No further chest pain. NSVT/Idioventricular rhythm: Total of 20 beats 03/03. Idioventricular rhythm may signify reperfusion or may just be post CA arrhythmias. Baseline HR 50s so will not tolerate beta blockers. For now will observe for recurrence. Bradycardia/hypotension: By history appears to be a vagal reaction to his pain. Could have been related to the Cx occlusion which supplies the PDA. Congenital solitary kidney with CKD:stable Cr post PCI CAD s/p prior PCI HTN -d/c integrilin -ASA, ticagrelor -lipitor -no beta darion for now due to resting bradycardia -echo Problems: Consultation Date/Type/Reason Admit Date/Time Mar 03, 2017 at 15:36 Initial Consult Date 03/03/17 Type of Consultation: Cardiology Referring Provider: ALYSSA MOHR 24 HR Interval Summary Free Text/Dictation Overnight mostly sinus bradycardia. Had some episodes in the 40s while sleeping. Also had a runs of NSVT and then slowed down to idioventricular rhythm (total 20 beats). Otherwise doing well. No chest pain or other complaints Exam/Review of Systems Vital Signs Vitals Vital Signs Date Time Temp Pulse Resp B/P Pulse Ox O2 Delivery O2 Flow Rate FiO2 03/04/17 08:00 55 03/04/17 06:00 15 116/69 96 Room Air 03/04/17 04:00 98.4 03/03/17 07:38 2.0 Intake and Output 03/03/17 03/03/17 03/04/17 15:00 23:00 07:00 Intake Total 1534.632 ml 267.178 ml Output Total 300 ml 1100 ml Balance 1234.632 ml -832.822 ml Exam Constitutional: alert, oriented Psych: nl mood/affect, no complaints Head: atraumatic, normocephalic Neck: No jvd Respiratory: clear to auscultation, No crackles/rales Cardiovascular: No edema, No regular rate and rhythm (bradycardic ), No systolic murmur Gastrointestinal: non-tender, soft Neurological: nl mental status, nl speech Results Result Diagram: 03/04/17 0447 03/04/17 0805 Results 24 hrs Laboratory Tests Test 03/03/17 12:06 03/03/17 18:10 03/04/17 04:47 03/04/17 08:05 Creatine Kinase 378 H 545 H Creatine Kinase Index 5.8 6.8 Creatinine Kinase MB (Mass) 21.90 H 37.00 H Troponin I 2.540 *H 10.400 *H 10.400 *H White Blood Count 13.2 H Red Blood Count 4.45 L Hemoglobin 13.8 L Hematocrit 42.0 Mean Corpuscular Volume 94.4 Mean Corpuscular Hemoglobin 31.0 Mean Corpuscular Hemoglobin Concent 32.9 Red Cell Distribution Width 14.6 H Platelet Count 176 Mean Platelet Volume 11.9 H Neutrophils % 73.9 Lymphocytes % 17.5 Monocytes % 6.9 Eosinophils % 1.0 Basophils % 0.3 Nucleated Red Blood Cells % 0.2 H Neutrophils # 9.8 H Lymphocytes # 2.3 Monocytes # 0.9 Eosinophils # 0.1 Basophils # 0.0 Nucleated Red Blood Cells # 0.0 Sodium Level 138 Potassium Level 4.2 Chloride Level 115 H Carbon Dioxide Level 20 L Anion Gap 7 L Blood Urea Nitrogen 16 Creatinine 1.21 Glucose Level 96 Calcium Level 8.5 Phosphorus Level 2.4 L Magnesium Level 1.9 Total Bilirubin 0.6 Direct Bilirubin 0.00 Indirect Bilirubin 0.6 Aspartate Amino Transf (AST/SGOT) 70 H Alanine Aminotransferase (ALT/SGPT) 49 Alkaline Phosphatase 103 Total Protein 5.9 L Albumin 3.8 Globulin 2.10 Albumin/Globulin Ratio 1.80 Medications Medications Current Medications Aspirin (Aspirin) 81 mg DAILY PO Last administered on 03/04/17 09:13; Admin Dose 81 MG; Start 03/04/17 at 09:00 Acetaminophen (Tylenol Tab) 650 mg Q6H PRN PO PAIN LEVEL 1-3 OR FEVER; Start at 11:00 Acetaminophen/ Hydrocodone Bitart ([place] (5/325)) 1 tab Q6H PRN PO PAIN LEVEL 4 -6 Last administered on 03/03/17 18:57; Admin Dose 1 TAB; Start 03/03/17 at 11: 00 Magnesium Hydroxide (Milk Of Mag) 30 ml DAILY PRN PO CONSTIPATION; Start at 11:00 Bisacodyl (Dulcolax) 5 mg DAILY PRN PO CONSTIPATION; Start 03/03/17 at 11:00 Pantoprazole (Protonix Tab) 40 mg DAILY@06 PO Last administered on 03/04/17 05 :49; Admin Dose 40 MG; Start 03/04/17 at 06:00 Hydralazine HCl (Apresoline) 10 mg Q6H PRN IV SBP>160; Start 03/03/17 at 11:00 Morphine Sulfate (morphine) 2 mg Q2H PRN IV FOR NON CARDIAC PAIN (4-10); Start 03/03/17 at 15:30 Ondansetron HCl (Zofran Inj) 4 mg Q4H PRN IV NAUSEA AND/OR VOMITING; Start at 15:30 Ticagrelor (Brilinta) 90 mg BID PO Last administered on 03/04/17 09:13; Admin Dose 90 MG; Start 03/03/17 at 21:00 Morphine Sulfate (morphine) 1 mg Q6H PRN IV PAIN Last administered on 23:35; Admin Dose 1 MG; Start 03/03/17 at 23:30 VERO GROVES Mar 04, 2017 10:55
--- NOTE | 2017-03-04 15:20 | RADRPT ---
Echocardiogram Report Patient Name: DANIA CASSIDY Gender: Male Date: 1960 Study Date: 04-Mar-2017 Director Of Instrumental Music: Kajal Cat RDCS Location: 103 Ref. Physician: VERO MCGOWAN Quality: Good Procedures: Transthoracic echocardiogram with complete 2D, M-Mode, and doppler examination. Indications: NSTEMI. 2D/M Mode Doppler Measurement Value Normal Ranges Measurement Value Normal Ranges LVIDd 2D 5.0 3.5 - 5.6 cm AV Peak Josias 1.0 m/sec LVIDs 2D 2.7 2.1 - 4.1 cm AV Peak PG 4.0 mmHg FS 2D 45.1 % LVOT Peak Josias 0.9 m/sec LVPWd 2D 1.0 0.6 - 1.1 cm LVOT Peak PG 3.0 mmHg IVSd 2D 1.1 0.6 - 1.1 cm MV E Peak Josias 0.7 m/sec IVS/LVPW 2D 1.1 MV A Peak Josias 0.8 m/sec AoR Diam 2D 3.3 2.0 - 3.7 cm MV E/A 0.8 LA/Ao 2D 1 0 - 1 MV Decel Time 225 msec EDV 2D 124.0 cm3 MV E/A 0.8 ESV 2D 20.6 cm3 TR Peak Josias 2.7 m/sec LA Dimen 2D 3.4 2.3 - 4.0 cm TR Peak PG 28.0 mmHg RVSP 36.0 mmHg Findings Left Ventricle: Normal left ventricular systolic function. Normal left ventricular cavity size. Normal left ventricular wall thickness. Ejection fraction is visually estimated at 55 %. Tissue Doppler/Mitral Doppler indices are consistent with impaired relaxation (Stage I diastolic dysfunction). Resting Segmental Wall Motion Analysis: Possible mild hypokinesis of the inferior wall. Right Ventricle: Normal right ventricular size. Normal right ventricular systolic function. Left Atrium: The left atrium is normal in size. Right Atrium: The right atrium is normal in size. Mitral Valve: Normal appearance and function of the mitral valve with trace physiologic regurgitation. Aortic Valve: Normal appearance of the aortic valve. No significant aortic stenosis or insufficiency. Tricuspid Valve: Normal appearance of the tricuspid valve. Estimated peak PA systolic pressure 36 mmHg. There is trace tricuspid regurgitation. Pulmonic Valve: Normal pulmonic valve appearance. Pericardium: Normal pericardium with no significant pericardial effusion. Aorta: Normal aortic root. IVC: Dilated IVC with respiratory collapse consistent with elevated right atrial pressure. Conclusions Normal left ventricular systolic function. Normal left ventricular cavity size. Normal left ventricular wall thickness. Ejection fraction is visually estimated at 55 %. Tissue Doppler/Mitral Doppler indices are consistent with impaired relaxation (Stage I diastolic dysfunction). Possible mild hypokinesis of the inferior wall. No significant valvular stenosis or regurgitation seen. Estimated peak PA systolic pressure 36 mmHg based on RA pressure of 3 mmHg. Electronically Signed By: Vero Mcgowan 04-Mar-2017 15:19:48 -0700 Patient Name: DANIA CASSIDY Study Date: 04-Mar-2017 [id number]
--- NOTE | 2017-03-04 16:37 | PN ---
Date/Time of Note Date/Time of Note DATE: 03/04/17 TIME: 16:32 Assessment/Plan VTE Prophylaxis VTE Prophylaxis Intervention: other Lines/Catheters IV [facility] Peripheral IV Urinary Cath still in place: No Assessment/Plan Chief Complaint/Hosp Course 1. NSTEMI Trop peaked at 10. Cath with occluded distal Cx supplying a small PDA. Unfortunately there was heavy thrombus burden and only MARIANO 1 flow at the end. S /p integrilin drip. No further chest pain. -cont ASA, ticagrelor and lipitor, no beta darion for now due to resting bradycardia -echo 2. Congenital solitary kidney with CKD -Renal consult appreciated 3. Sinus bradycardia. Etiology unclear may be vagal Will avoid any AV chris blocking agents. Will monitor closely. Cardiology following. 4. Nicotine use. Cessation will be advised. 5. Leukocytosis. Probably reactive. The patient remains afebrile. Chest x- ray negative for any acute infiltrates. -check a UA 6. NSVT/Idioventricular rhythm: Baseline HR 50s so will not tolerate beta blockers observe 7. CAD s/p prior PCI Problems: Subjective 24 Hr Interval Summary Constitutional: no complaints Exam/Review of Systems Vital Signs Vitals Vital Signs Date Time Temp Pulse Resp B/P Pulse Ox O2 Delivery O2 Flow Rate FiO2 03/04/17 14:00 77 16 102/80 97 Room Air 03/04/17 12:00 98.0 03/03/17 07:38 2.0 Intake and Output 03/03/17 03/03/17 03/04/17 15:00 23:00 07:00 Intake Total 1534.632 ml 269.678 ml Output Total 300 ml 1100 ml Balance 1234.632 ml -830.322 ml Exam Constitutional: alert, oriented Respiratory: clear to auscultation Cardiovascular: regular rate and rhythm Gastrointestinal: soft, No distended Musculoskeletal: nl extremities to inspection Results Result Diagram: 03/04/17 0447 03/04/17 0805 Results 24 hrs Laboratory Tests Test 03/03/17 18:10 03/04/17 04:47 03/04/17 08:05 Creatine Kinase 545 H Creatine Kinase Index 6.8 Creatinine Kinase MB (Mass) 37.00 H Troponin I 10.400 *H 10.400 *H White Blood Count 13.2 H Red Blood Count 4.45 L Hemoglobin 13.8 L Hematocrit 42.0 Mean Corpuscular Volume 94.4 Mean Corpuscular Hemoglobin 31.0 Mean Corpuscular Hemoglobin Concent 32.9 Red Cell Distribution Width 14.6 H Platelet Count 176 Mean Platelet Volume 11.9 H Neutrophils % 73.9 Lymphocytes % 17.5 Monocytes % 6.9 Eosinophils % 1.0 Basophils % 0.3 Nucleated Red Blood Cells % 0.2 H Neutrophils # 9.8 H Lymphocytes # 2.3 Monocytes # 0.9 Eosinophils # 0.1 Basophils # 0.0 Nucleated Red Blood Cells # 0.0 Sodium Level 138 Potassium Level 4.2 Chloride Level 115 H Carbon Dioxide Level 20 L Anion Gap 7 L Blood Urea Nitrogen 16 Creatinine 1.21 Glucose Level 96 Calcium Level 8.5 Phosphorus Level 2.4 L Magnesium Level 1.9 Total Bilirubin 0.6 Direct Bilirubin 0.00 Indirect Bilirubin 0.6 Aspartate Amino Transf (AST/SGOT) 70 H Alanine Aminotransferase (ALT/SGPT) 49 Alkaline Phosphatase 103 Total Protein 5.9 L Albumin 3.8 Globulin 2.10 Albumin/Globulin Ratio 1.80 Medications Medications Current Medications Aspirin (Aspirin) 81 mg DAILY PO Last administered on 03/04/17 09:13; Admin Dose 81 MG; Start 03/04/17 at 09:00 Acetaminophen (Tylenol Tab) 650 mg Q6H PRN PO PAIN LEVEL 1-3 OR FEVER; Start at 11:00 Acetaminophen/ Hydrocodone Bitart ([place] (5/325)) 1 tab Q6H PRN PO PAIN LEVEL 4 -6 Last administered on 03/03/17 18:57; Admin Dose 1 TAB; Start 03/03/17 at 11: 00 Magnesium Hydroxide (Milk Of Mag) 30 ml DAILY PRN PO CONSTIPATION; Start at 11:00 Bisacodyl (Dulcolax) 5 mg DAILY PRN PO CONSTIPATION; Start 03/03/17 at 11:00 Pantoprazole (Protonix Tab) 40 mg DAILY@06 PO Last administered on 03/04/17 05 :49; Admin Dose 40 MG; Start 03/04/17 at 06:00 Hydralazine HCl (Apresoline) 10 mg Q6H PRN IV SBP>160; Start 03/03/17 at 11:00 Morphine Sulfate (morphine) 2 mg Q2H PRN IV FOR NON CARDIAC PAIN (4-10); Start 03/03/17 at 15:30 Ondansetron HCl (Zofran Inj) 4 mg Q4H PRN IV NAUSEA AND/OR VOMITING; Start at 15:30 Ticagrelor (Brilinta) 90 mg BID PO Last administered on 03/04/17 09:13; Admin Dose 90 MG; Start 03/03/17 at 21:00 Morphine Sulfate (morphine) 1 mg Q6H PRN IV PAIN Last administered on 23:35; Admin Dose 1 MG; Start 03/03/17 at 23:30 TAMIR WELCH Mar 04, 2017 16:37
[2017-03-05] VITALS (12 sets, daily range): BP systolic 104–143; BP diastolic 59–74; PULSE 55–70; RESP 17–19
[2017-03-05] MEDS: PANTOPRAZOLE (EC) 40 MG TAB PO SCH (06:16)
[2017-03-05 06:27] LABS: ADD SCAN DIFF NO
[2017-03-05 06:30] LABS: BASOPHILS % 0.3 % (0.0-2.0); EOSINOPHILS # 0.2 10^3/ul (0.0-0.5); HEMOGLOBIN 13.6 g/dl (14.0-18.0); LYMPHOCYTES # 2.3 10^3/ul (0.8-2.9); LYMPHOCYTES % 22.9 % (15.0-51.0); MEAN CORPUSCULAR HEMOGLOBIN 30.4 pg (29.0-33.0); MEAN CORPUSCULAR HGB CONC 32.4 g/dl (32.0-37.0); MEAN PLATELET VOLUME 12.1 fl (7.4-10.4); MONOCYTE # 0.6 10^3/ul (0.3-0.9); MONOCYTES % 6.4 % (0.0-11.0); NEUTROPHIL # 6.8 10^3/ul (1.6-7.5); PLATELET COUNT 168 10^3/UL (140-415); RED BLOOD COUNT 4.47 10^6/ul (4.70-6.10); RED CELL DISTRIBUTION WIDTH 14.4 % (11.5-14.5)
[2017-03-05 07:05] LABS: CALCIUM 8.7 mg/dl (8.4-10.2); CREATININE 1.38 mg/dl (0.61-1.24); MAGNESIUM 1.8 mg/dl (1.7-2.5); PHOSPHORUS 2.6 mg/dl (2.5-4.9); POTASSIUM 4.5 mmol/L (3.5-5.1)
[2017-03-05] MEDS: ASPIRIN 81 MG TAB PO SCH (08:22)
[2017-03-05] MEDS: TICAGRELOR 90 MG TABLET PO SCH ×2 (08:27→20:46)
--- NOTE | 2017-03-05 09:34 | CONS ---
Date/Time of Note Date/Time of Note DATE: 03/05/17 TIME: 09:32 Consult Date/Type/Reason Admit Date/Time Mar 03, 2017 at 15:36 Initial Consult Date 03/03/17 Type of Consultation: neph Reason for Consultation pt. s/p left heart cath. urine studies pending. renal us with solitary kidney, mild right hydro?? Exam Constitutional: alert, oriented Psych: nl mood/affect, no complaints Head: atraumatic, normocephalic Neck: No jvd Respiratory: clear to auscultation, No crackles/rales Cardiovascular: regular rate and rhythm, No edema Gastrointestinal: non-tender, soft Neurological: nl mental status, nl speech Ordering Provider: ALYSSA MOHR Objective Vital Signs Date Time Temp Pulse Resp B/P Pulse Ox O2 Delivery O2 Flow Rate FiO2 03/05/17 08:05 55 03/05/17 07:19 98.2 19 110/62 98 03/04/17 22:50 Room Air 03/03/17 07:38 2.0 Intake and Output 03/04/17 03/04/17 03/05/17 15:00 23:00 07:00 Intake Total 977.5 ml 310 ml 100 ml Output Total 850 ml 880 ml Balance 127.5 ml -570 ml 100 ml Results/Medications Result Diagram: 03/05/17 0600 03/05/17 0600 Results 24 hrs Laboratory Tests Test 03/05/17 06:00 White Blood Count 10.0 # Red Blood Count 4.47 L Hemoglobin 13.6 L Hematocrit 42.0 Mean Corpuscular Volume 94.0 Mean Corpuscular Hemoglobin 30.4 Mean Corpuscular Hemoglobin Concent 32.4 Red Cell Distribution Width 14.4 Platelet Count 168 Mean Platelet Volume 12.1 H Neutrophils % 68.0 Lymphocytes % 22.9 Monocytes % 6.4 Eosinophils % 2.0 Basophils % 0.3 Nucleated Red Blood Cells % 0.0 Neutrophils # 6.8 Lymphocytes # 2.3 Monocytes # 0.6 Eosinophils # 0.2 Basophils # 0.0 Nucleated Red Blood Cells # 0.0 Sodium Level 142 Potassium Level 4.5 Chloride Level 110 Carbon Dioxide Level 25 Anion Gap 12 Blood Urea Nitrogen 17 Creatinine 1.38 H Glucose Level 83 Calcium Level 8.7 Phosphorus Level 2.6 Magnesium Level 1.8 Medications Current Medications Aspirin (Aspirin) 81 mg DAILY PO Last administered on 03/05/17 08:22; Admin Dose 81 MG; Start 03/04/17 at 09:00 Acetaminophen (Tylenol Tab) 650 mg Q6H PRN PO PAIN LEVEL 1-3 OR FEVER; Start at 11:00 Acetaminophen/ Hydrocodone Bitart ([place] (5/325)) 1 tab Q6H PRN PO PAIN LEVEL 4 -6 Last administered on 03/03/17 18:57; Admin Dose 1 TAB; Start 03/03/17 at 11: 00 Magnesium Hydroxide (Milk Of Mag) 30 ml DAILY PRN PO CONSTIPATION; Start at 11:00 Bisacodyl (Dulcolax) 5 mg DAILY PRN PO CONSTIPATION; Start 03/03/17 at 11:00 Pantoprazole (Protonix Tab) 40 mg DAILY@06 PO Last administered on 03/05/17 06 :16; Admin Dose 40 MG; Start 03/04/17 at 06:00 Hydralazine HCl (Apresoline) 10 mg Q6H PRN IV SBP>160; Start 03/03/17 at 11:00 Morphine Sulfate (morphine) 2 mg Q2H PRN IV FOR NON CARDIAC PAIN (4-10); Start 03/03/17 at 15:30 Ondansetron HCl (Zofran Inj) 4 mg Q4H PRN IV NAUSEA AND/OR VOMITING Last administered on 03/04/17 18:47; Admin Dose 4 MG; Start 03/03/17 at 15:30 Ticagrelor (Brilinta) 90 mg BID PO Last administered on 03/05/17 08:27; Admin Dose 90 MG; Start 03/03/17 at 21:00 Morphine Sulfate (morphine) 1 mg Q6H PRN IV PAIN Last administered on 23:35; Admin Dose 1 MG; Start 03/03/17 at 23:30 Assessment/Plan Chief Complaint/Hosp Course 1. Possible AK I/ chronic kidney disease in setting of solitary kidney, with unknown baseline creatinine.. -We will check UA with microanalysis check urine lytes, renal us noted with mild hydro? significance. -Patient is post cardiac catheterization and has moderate risk factors for contrast associated nephropathy, follow uop and lytes closely. holding steady -cont hydration. -We will check a urinalysis urine lytes -avoid nsaids, no acei or diuretics for now if possible. 2. Anemia -Monitor H&H levels 3. Mineral bone disorder -Monitor calcium phosphorus levels 4. History of congenital atrophic kidney status post nephrectomy 5. Non-STEMI -Patient post cath. heavy clot burden Continue current medical management 6. Hypotension -Possibly due to underlying [place] -Continue gentle hydration monitor closely 7. History of coronary disease Continue medical management Problems: SHELLY MELGAR MD Mar 05, 2017 09:34
--- NOTE | 2017-03-05 12:29 | PN ---
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 This is stable (2) Stented coronary artery Status: Acute Comment: He had a stenting roughly 10 years ago now is immediately post circumflex stenting. At this time he is asymptomatic. Discharge planning as per cardiology. Maximal risk factor reduction. I have counseled him especially about smoking (3) Diastolic dysfunction Status: Chronic Comment: Noted. 1 of his discharge medications may be a beta-darion once we are certain or not going to run into issues of bradycardia. Cardiology will help guide us (4) Tobacco abuse Status: Chronic Comment: Counseled (5) Hyperlipidemia Status: Chronic Comment: Given his history of coronary disease acutely and 10 years ago his LDL needs to be brought down I will initiate him on statin therapy which was not on as an outpatient Qualifiers: Hyperlipidemia type: pure hypercholesterolemia Qualified Code: E78.00 - Pure hypercholesterolemia (6) Essential hypertension Status: Chronic Comment: JOHN inhibitor and possibly beta-darion as per cardiology (7) Renal insufficiency Status: Chronic Comment: He has chronic kidney disease although his outpatient baseline creatinines are not available to us. We will continue to observe it appears he is done well despite angiographic dye load (due to the cautious usage by the sound assistant) (8) Non-STEMI (non-ST elevated myocardial infarction) Status: Acute Comment: Recovering well Subjective 24 Hr Interval Summary Free Text/Dictation Pleasant male who reports that he is bored Constitutional: no complaints (No fever chills or sweats) Respiratory: no complaints Cardiovascular: no complaints Gastrointestinal: no complaints Endocrine: no complaints Exam/Review of Systems Vital Signs Vitals Vital Signs Date Time Temp Pulse Resp B/P Pulse Ox O2 Delivery O2 Flow Rate FiO2 03/05/17 12:22 55 03/05/17 11:40 98.2 19 104/70 96 03/04/17 22:50 Room Air 03/03/17 07:38 2.0 Intake and Output 03/04/17 03/04/17 03/05/17 15:00 23:00 07:00 Intake Total 977.5 ml 310 ml 100 ml Output Total 850 ml 880 ml Balance 127.5 ml -570 ml 100 ml Exam Constitutional: alert, oriented Respiratory: clear to auscultation, normal air movement Cardiovascular: nl pulses, regular rate and rhythm Gastrointestinal: nl liver, spleen, non-tender, soft Results Result Diagram: 03/05/17 0600 03/05/17 0600 Results 24 hrs Laboratory Tests Test 03/05/17 06:00 White Blood Count 10.0 # Red Blood Count 4.47 L Hemoglobin 13.6 L Hematocrit 42.0 Mean Corpuscular Volume 94.0 Mean Corpuscular Hemoglobin 30.4 Mean Corpuscular Hemoglobin Concent 32.4 Red Cell Distribution Width 14.4 Platelet Count 168 Mean Platelet Volume 12.1 H Neutrophils % 68.0 Lymphocytes % 22.9 Monocytes % 6.4 Eosinophils % 2.0 Basophils % 0.3 Nucleated Red Blood Cells % 0.0 Neutrophils # 6.8 Lymphocytes # 2.3 Monocytes # 0.6 Eosinophils # 0.2 Basophils # 0.0 Nucleated Red Blood Cells # 0.0 Sodium Level 142 Potassium Level 4.5 Chloride Level 110 Carbon Dioxide Level 25 Anion Gap 12 Blood Urea Nitrogen 17 Creatinine 1.38 H Glucose Level 83 Calcium Level 8.7 Phosphorus Level 2.6 Magnesium Level 1.8 Medications Medications Current Medications Aspirin (Aspirin) 81 mg DAILY PO Last administered on 03/05/17 08:22; Admin Dose 81 MG; Start 03/04/17 at 09:00 Acetaminophen (Tylenol Tab) 650 mg Q6H PRN PO PAIN LEVEL 1-3 OR FEVER; Start at 11:00 Acetaminophen/ Hydrocodone Bitart ([place] (5/325)) 1 tab Q6H PRN PO PAIN LEVEL 4 -6 Last administered on 03/03/17 18:57; Admin Dose 1 TAB; Start 03/03/17 at 11: 00 Magnesium Hydroxide (Milk Of Mag) 30 ml DAILY PRN PO CONSTIPATION; Start at 11:00 Bisacodyl (Dulcolax) 5 mg DAILY PRN PO CONSTIPATION; Start 03/03/17 at 11:00 Pantoprazole (Protonix Tab) 40 mg DAILY@06 PO Last administered on 03/05/17 06 :16; Admin Dose 40 MG; Start 03/04/17 at 06:00 Hydralazine HCl (Apresoline) 10 mg Q6H PRN IV SBP>160; Start 03/03/17 at 11:00 Morphine Sulfate (morphine) 2 mg Q2H PRN IV FOR NON CARDIAC PAIN (4-10); Start 03/03/17 at 15:30 Ondansetron HCl (Zofran Inj) 4 mg Q4H PRN IV NAUSEA AND/OR VOMITING Last administered on 03/04/17 18:47; Admin Dose 4 MG; Start 03/03/17 at 15:30 Ticagrelor (Brilinta) 90 mg BID PO Last administered on 03/05/17 08:27; Admin Dose 90 MG; Start 03/03/17 at 21:00 Morphine Sulfate (morphine) 1 mg Q6H PRN IV PAIN Last administered on 23:35; Admin Dose 1 MG; Start 03/03/17 at 23:30 Atorvastatin Calcium (Lipitor) 40 mg HS PO ; Start 03/05/17 at 21:00 GATITO BELTRAN MD Mar 05, 2017 12:28
--- NOTE | 2017-03-05 13:07 | CONS ---
Date/Time of Note Date/Time of Note DATE: 03/05/17 TIME: 13:04 Assessment/Plan Assessment/Plan Chief Complaint/Hosp Course NSTEMI: Trop peaked at 10. Cath with occluded distal Cx supplying a small PDA. Unfortunately there was heavy thrombus burden and only MARIANO 1 flow at the end. S /p integrilin drip. No further chest pain. Echo with preserved EF NSVT/Idioventricular rhythm: Total of 20 beats 03/03. Idioventricular rhythm may signify reperfusion or may just be post AK arrhythmias. Baseline HR 50s so will not tolerate beta blockers. For now will observe for recurrence. None since Bradycardia/hypotension: By history appears to be a vagal reaction to his pain. Could have been related to the Cx occlusion which supplies the PDA. Congenital solitary kidney with CKD:Cr slightly higher,monitor CAD s/p prior PCI HTN -ASA, ticagrelor -lipitor -no beta darion for now due to resting bradycardia -watch one more day to complete 72 hours post AK observation Problems: Consultation Date/Type/Reason Admit Date/Time Mar 03, 2017 at 15:36 Initial Consult Date 03/03/17 Type of Consultation: Cardiology Referring Provider: ALYSSA MOHR 24 HR Interval Summary Free Text/Dictation No o/n events. Walking without symptoms. No arrhythmias. Wants to go home Exam/Review of Systems Vital Signs Vitals Vital Signs Date Time Temp Pulse Resp B/P Pulse Ox O2 Delivery O2 Flow Rate FiO2 03/05/17 12:22 55 03/05/17 11:40 98.2 19 104/70 96 03/04/17 22:50 Room Air 03/03/17 07:38 2.0 Intake and Output 03/04/17 03/04/17 03/05/17 15:00 23:00 07:00 Intake Total 977.5 ml 310 ml 100 ml Output Total 850 ml 880 ml Balance 127.5 ml -570 ml 100 ml Exam Constitutional: alert, oriented Psych: no complaints Head: atraumatic, normocephalic Neck: No jvd Respiratory: clear to auscultation, No crackles/rales Cardiovascular: regular rate and rhythm, No edema, No systolic murmur Gastrointestinal: non-tender, soft Neurological: nl mental status, nl speech Results Result Diagram: 03/05/17 0600 03/05/17 0600 Results 24 hrs Laboratory Tests Test 03/05/17 06:00 White Blood Count 10.0 # Red Blood Count 4.47 L Hemoglobin 13.6 L Hematocrit 42.0 Mean Corpuscular Volume 94.0 Mean Corpuscular Hemoglobin 30.4 Mean Corpuscular Hemoglobin Concent 32.4 Red Cell Distribution Width 14.4 Platelet Count 168 Mean Platelet Volume 12.1 H Neutrophils % 68.0 Lymphocytes % 22.9 Monocytes % 6.4 Eosinophils % 2.0 Basophils % 0.3 Nucleated Red Blood Cells % 0.0 Neutrophils # 6.8 Lymphocytes # 2.3 Monocytes # 0.6 Eosinophils # 0.2 Basophils # 0.0 Nucleated Red Blood Cells # 0.0 Sodium Level 142 Potassium Level 4.5 Chloride Level 110 Carbon Dioxide Level 25 Anion Gap 12 Blood Urea Nitrogen 17 Creatinine 1.38 H Glucose Level 83 Calcium Level 8.7 Phosphorus Level 2.6 Magnesium Level 1.8 Medications Medications Current Medications Aspirin (Aspirin) 81 mg DAILY PO Last administered on 03/05/17 08:22; Admin Dose 81 MG; Start 03/04/17 at 09:00 Acetaminophen (Tylenol Tab) 650 mg Q6H PRN PO PAIN LEVEL 1-3 OR FEVER; Start at 11:00 Acetaminophen/ Hydrocodone Bitart ([place] (5/325)) 1 tab Q6H PRN PO PAIN LEVEL 4 -6 Last administered on 03/03/17 18:57; Admin Dose 1 TAB; Start 03/03/17 at 11: 00 Magnesium Hydroxide (Milk Of Mag) 30 ml DAILY PRN PO CONSTIPATION; Start at 11:00 Bisacodyl (Dulcolax) 5 mg DAILY PRN PO CONSTIPATION; Start 03/03/17 at 11:00 Pantoprazole (Protonix Tab) 40 mg DAILY@06 PO Last administered on 03/05/17 06 :16; Admin Dose 40 MG; Start 03/04/17 at 06:00 Hydralazine HCl (Apresoline) 10 mg Q6H PRN IV SBP>160; Start 03/03/17 at 11:00 Morphine Sulfate (morphine) 2 mg Q2H PRN IV FOR NON CARDIAC PAIN (4-10); Start 03/03/17 at 15:30 Ondansetron HCl (Zofran Inj) 4 mg Q4H PRN IV NAUSEA AND/OR VOMITING Last administered on 03/04/17 18:47; Admin Dose 4 MG; Start 03/03/17 at 15:30 Ticagrelor (Brilinta) 90 mg BID PO Last administered on 03/05/17 08:27; Admin Dose 90 MG; Start 03/03/17 at 21:00 Morphine Sulfate (morphine) 1 mg Q6H PRN IV PAIN Last administered on 23:35; Admin Dose 1 MG; Start 03/03/17 at 23:30 Atorvastatin Calcium (Lipitor) 40 mg HS PO ; Start 03/05/17 at 21:00 VERO GROVES Mar 05, 2017 13:07
[2017-03-05] MEDS ORDERED: ATORVASTATIN 40 MG TAB PO SCH (21:00)
[2017-03-05] MEDS: HYDROCODONE/APAP (5/325) TAB PO PRN (23:27)
[2017-03-06] VITALS (9 sets, daily range): BP systolic 119–122; BP diastolic 64–72; PULSE 20–73; RESP 16–19
[2017-03-06] MEDS: PANTOPRAZOLE (EC) 40 MG TAB PO SCH (05:46)
[2017-03-06] MEDS: ASPIRIN 81 MG TAB PO SCH (09:10)
[2017-03-06] MEDS: TICAGRELOR 90 MG TABLET PO SCH (09:16)
--- NOTE | 2017-03-06 11:10 | CONS ---
Date/Time of Note Date/Time of Note DATE: 03/06/17 TIME: 11:07 Consult Date/Type/Reason Admit Date/Time Mar 03, 2017 at 15:36 Initial Consult Date 03/03/17 Type of Consultation: Cardiology Ordering Provider: ALYSSA MOHR pt. s/p left heart cath. urine studies pending. renal us with solitary kidney, right hydro?? Exam Constitutional: alert, oriented Psych: nl mood/affect, no complaints Head: atraumatic, normocephalic Neck: No jvd Respiratory: clear to auscultation, No crackles/rales Cardiovascular: regular rate and rhythm, No edema Gastrointestinal: non-tender, soft Neurological: nl mental status, nl speech Objective Vital Signs Date Time Temp Pulse Resp B/P Pulse Ox O2 Delivery O2 Flow Rate FiO2 03/06/17 08:18 73 03/06/17 07:09 97.8 19 119/64 95 03/06/17 00:00 Room Air 03/03/17 07:38 2.0 Intake and Output 03/05/17 03/05/17 03/06/17 15:00 23:00 07:00 Intake Total 650 ml 800 ml Output Total 1100 ml Balance 650 ml -300 ml Results/Medications Result Diagram: 03/05/17 0600 03/05/17 0600 Results 24 hrs Laboratory Tests Test 03/06/17 05:46 Troponin I 3.500 *H Medications Current Medications Aspirin (Aspirin) 81 mg DAILY PO Last administered on 03/06/17 09:10; Admin Dose 81 MG; Start 03/04/17 at 09:00 Acetaminophen (Tylenol Tab) 650 mg Q6H PRN PO PAIN LEVEL 1-3 OR FEVER; Start at 11:00 Acetaminophen/ Hydrocodone Bitart ([place] (5/325)) 1 tab Q6H PRN PO PAIN LEVEL 4 -6 Last administered on 03/05/17 23:27; Admin Dose 1 TAB; Start 03/03/17 at 11: 00 Magnesium Hydroxide (Milk Of Mag) 30 ml DAILY PRN PO CONSTIPATION; Start at 11:00 Bisacodyl (Dulcolax) 5 mg DAILY PRN PO CONSTIPATION; Start 03/03/17 at 11:00 Pantoprazole (Protonix Tab) 40 mg DAILY@06 PO Last administered on 03/06/17 05 :46; Admin Dose 40 MG; Start 03/04/17 at 06:00 Hydralazine HCl (Apresoline) 10 mg Q6H PRN IV SBP>160; Start 03/03/17 at 11:00 Morphine Sulfate (morphine) 2 mg Q2H PRN IV FOR NON CARDIAC PAIN (4-10); Start 03/03/17 at 15:30 Ondansetron HCl (Zofran Inj) 4 mg Q4H PRN IV NAUSEA AND/OR VOMITING Last administered on 03/04/17 18:47; Admin Dose 4 MG; Start 03/03/17 at 15:30 Ticagrelor (Brilinta) 90 mg BID PO Last administered on 03/06/17 09:16; Admin Dose 90 MG; Start 03/03/17 at 21:00 Morphine Sulfate (morphine) 1 mg Q6H PRN IV PAIN Last administered on 23:35; Admin Dose 1 MG; Start 03/03/17 at 23:30 Atorvastatin Calcium (Lipitor) 40 mg HS PO Last administered on 03/05/17 20:35 ; Admin Dose 40 MG; Start 03/05/17 at 21:00 Assessment/Plan Chief Complaint/Hosp Course 1. Possible AK I/ chronic kidney disease in setting of solitary kidney, with unknown baseline creatinine.. -We will check UA with microanalysis check urine lytes, renal us noted with mild hydro? significance. if actual hydronephrosis occured with single kidney, expect deteriorating kidney function. will repeat labs. consider ct eval. -Patient is post cardiac catheterization and has moderate risk factors for contrast associated nephropathy, follow uop and lytes closely. holding steady -cont hydration. -We will check a urinalysis urine lytes -avoid nsaids, no acei or diuretics for now if possible. 2. Anemia -Monitor H&H levels 3. Mineral bone disorder -Monitor calcium phosphorus levels 4. History of congenital atrophic kidney status post nephrectomy 5. Non-STEMI -Patient post cath. heavy clot burden Continue current medical management 6. Hypotension -Possibly due to underlying [place] -Continue gentle hydration monitor closely 7. History of coronary disease Continue medical management Problems: SHELLY MELGAR MD Mar 06, 2017 11:09
--- NOTE | 2017-03-06 12:02 | PDOCDIS ---
Discharge Instructions DIAGNOSIS Discharge Diagnosis Acute coronary syndrome due to occlusion of the distal circumflex; hypertension ; hyperlipidemia; chronic kidney disease; solitary kidney; Patient became angry about something involving urologist and stormed out of the hospital slamming doors AGAINST MEDICAL ADVICE refusing to sign out CONDITION Patient Condition: Fair HOME CARE INSTRUCTIONS: Special Diet: No Added Salt ACTIVITY: Activity Restrictions: Do not operate Machinery Do not operate Power Tool FOLLOW UP/APPOINTMENTS Follow-up Plan He was supposed to follow-up with cardiology. Given the note of his leaving the hospital against advice is a little bit unclear if he will follow-up at all but we will be hopeful SCHOOL/WORK RELEASE May return to School/Work with: With Restrictions GATITO BELTRAN MD Mar 06, 2017 12:01
[2017-03-06] MEDS ORDERED: ATOR40TA68 PO (12:03)
[2017-03-06] MEDS ORDERED: ASPI81TA3 PO (12:03)
[2017-03-06] MEDS ORDERED: TICA90TA PO (12:03)
--- NOTE | 2017-03-06 12:10 | DS ---
Date/Time of Note Date/Time of Note DATE: 03/06/17 TIME: 12:06 Discharge Summary Admission/Discharge Info Admit Date/Time Mar 03, 2017 at 15:36 Discharge Date/Time 03/06/2017 Discharge Diagnosis Acute coronary syndrome due to occlusion of the distal circumflex; hypertension ; hyperlipidemia; chronic kidney disease; solitary kidney; Patient became angry about something involving urologist and stormed out of the hospital slamming doors AGAINST MEDICAL ADVICE refusing to sign out Patient Condition: Fair Consults Cardiology; nephrology Procedures Coronary angiography with PCi.; Renal ultrasound Hx of Present Illness Reason for admission: Chest pain. Consultants 1. Moises Mcgowan MD, Cardiology. 2. Svetlana Bailey DO, Nephrology. This is a 56-year-old male with past medical history of CAD status post percutaneous coronary intervention approximately 10 years ago and chronic kidney disease secondary to unilateral nephrectomy and creation of a Kock's pouch. He started having chest pain that was described as substernal rated as 7 /10 with radiation to the left arm with associated nausea and diaphoresis. He called the paramedics and was brought to the emergency room. As per reports, he was hypotensive and he had significant bradycardia with a heart rate as low in the 30s that was resolved after IV fluids and atropine. The patient denied any dyspnea. He denied any abdominal pain. In the emergency room, the patient was noticed to have a troponin level of 0.344. The patient's 12-lead EKG showed a normal sinus rhythm. The patient was started on a heparin drip. He was given a single dose of aspirin. Hospital Course 1. Possible AK I/ chronic kidney disease in setting of solitary kidney, with unknown baseline creatinine.. -We will check UA with microanalysis check urine lytes, renal us noted with mild hydro? significance. if actual hydronephrosis occured with single kidney, expect deteriorating kidney function. will repeat labs. consider ct eval. -Patient is post cardiac catheterization and has moderate risk factors for contrast associated nephropathy, follow uop and lytes closely. holding steady -cont hydration. -We will check a urinalysis urine lytes -avoid nsaids, no acei or diuretics for now if possible. 2. Anemia -Monitor H&H levels 3. Mineral bone disorder -Monitor calcium phosphorus levels 4. History of congenital atrophic kidney status post nephrectomy 5. Non-STEMI -Patient post cath. heavy clot burden Continue current medical management 6. Hypotension -Possibly due to underlying [place] -Continue gentle hydration monitor closely 7. History of coronary disease Continue medical management 56-year-old gentleman who presented with acute coronary syndrome. He had a prior history of coronary artery disease. He was taken to the catheterization lab and had angiography demonstrating a distal left circumflex artery occlusion. He underwent angioplasty however he he only achieved MARIANO I flow and as such was not a candidate for placement of a stent. His treated with aggressive anticoagulant therapy. Post procedure while on monitoring he did have some pauses. Plan was to do further evaluation of him however patient became irate regarding a urologic issue of undefined type and opted to leave the hospital AGAINST MEDICAL ADVICE. He declined to be signing out any papers and he declined his prescriptions. His prescriptions have been written and are waiting for him here in case he comes back alternatively they can be mailed to him. Home Meds Active Scripts Aspirin (Aspirin) 81 Mg Chew, 81 MG PO DAILY for 90 Days, TAB Prov:GATITO BELTRAN MD 03/06/17 Atorvastatin* (Atorvastatin*) 40 Mg Tablet, 40 MG PO HS for 30 Days, TAB Prov:GATITO BELTRAN MD 03/06/17 Ticagrelor* (Brilinta*) 90 Mg Tablet, 90 MG PO BID for 30 Days, TAB Prov:GATITO BELTRAN MD 03/06/17 Follow-up Plan With cardiology and nephrology within the next 3 weeks hopefully Primary Care Provider Care Physician No Primary Time spent on discharge: > 30 minutes Pending Labs Laboratory Tests Test 03/06/17 05:46 Troponin I 3.500ng/ml (0.00-0.12) GATITO BELTRAN MD Mar 06, 2017 12:10
--- NOTE | 2017-03-06 12:12 | CONS ---
Date/Time of Note Date/Time of Note DATE: 03/06/17 TIME: 12:09 Assessment/Plan Assessment/Plan Chief Complaint/Hosp Course NSTEMI: Trop peaked at 10. Cath with occluded distal Cx supplying a small PDA. Unfortunately there was heavy thrombus burden and only MARIANO 1 flow at the end. S /p integrilin drip. No further chest pain. Echo with preserved EF NSVT/Idioventricular rhythm: Total of 20 beats 03/03. Idioventricular rhythm may signify reperfusion or may just be post PA arrhythmias. Baseline HR 50s so will not tolerate beta blockers. No recurrence Sinus pauses: Occurred once in hospital at 2 am and may have been sleeping. Would require further evaluation and management but pt left the hospital Bradycardia/hypotension: By history appears to be a vagal reaction to his pain. Could have been related to the Cx occlusion which supplies the PDA. Congenital solitary kidney with CKD:Cr slightly higher,monitor CAD s/p prior PCI HTN -pt left AMA without signing paperwork. Hopefully he will follow up or come back for his med prescription. Luckily no stent was placed Problems: Consultation Date/Type/Reason Admit Date/Time Mar 03, 2017 at 15:36 Initial Consult Date 03/03/17 Type of Consultation: Cardiology Referring Provider: ALYSSA MOHR 24 HR Interval Summary Free Text/Dictation Overnight had 3 second pause with junctional escape at 2 am. Apparently he may have been awake and asymptomatic. This am the pt apparently was upset and left the hospital without signing AMA paperwork or taking his prescription scripts. Exam/Review of Systems Vital Signs Vitals Vital Signs Date Time Temp Pulse Resp B/P Pulse Ox O2 Delivery O2 Flow Rate FiO2 03/06/17 12:07 59 03/06/17 07:09 97.8 19 119/64 95 03/06/17 00:00 Room Air 03/03/17 07:38 2.0 Intake and Output 03/05/17 03/05/17 03/06/17 15:00 23:00 07:00 Intake Total 650 ml 800 ml Output Total 1100 ml Balance 650 ml -300 ml Exam unable to examine as left the hospital Results Result Diagram: 03/05/17 0600 03/05/17 0600 Results 24 hrs Laboratory Tests Test 03/06/17 05:46 Troponin I 3.500 *H Medications Medications Current Medications Aspirin (Aspirin) 81 mg DAILY PO Last administered on 03/06/17 09:10; Admin Dose 81 MG; Start 03/04/17 at 09:00 Acetaminophen (Tylenol Tab) 650 mg Q6H PRN PO PAIN LEVEL 1-3 OR FEVER; Start at 11:00 Acetaminophen/ Hydrocodone Bitart ([place] (5/325)) 1 tab Q6H PRN PO PAIN LEVEL 4 -6 Last administered on 03/05/17 23:27; Admin Dose 1 TAB; Start 03/03/17 at 11: 00 Magnesium Hydroxide (Milk Of Mag) 30 ml DAILY PRN PO CONSTIPATION; Start at 11:00 Bisacodyl (Dulcolax) 5 mg DAILY PRN PO CONSTIPATION; Start 03/03/17 at 11:00 Pantoprazole (Protonix Tab) 40 mg DAILY@06 PO Last administered on 03/06/17 05 :46; Admin Dose 40 MG; Start 03/04/17 at 06:00 Hydralazine HCl (Apresoline) 10 mg Q6H PRN IV SBP>160; Start 03/03/17 at 11:00 Morphine Sulfate (morphine) 2 mg Q2H PRN IV FOR NON CARDIAC PAIN (4-10); Start 03/03/17 at 15:30 Ondansetron HCl (Zofran Inj) 4 mg Q4H PRN IV NAUSEA AND/OR VOMITING Last administered on 03/04/17 18:47; Admin Dose 4 MG; Start 03/03/17 at 15:30 Ticagrelor (Brilinta) 90 mg BID PO Last administered on 03/06/17 09:16; Admin Dose 90 MG; Start 03/03/17 at 21:00 Morphine Sulfate (morphine) 1 mg Q6H PRN IV PAIN Last administered on 23:35; Admin Dose 1 MG; Start 03/03/17 at 23:30 Atorvastatin Calcium (Lipitor) 40 mg HS PO Last administered on 03/05/17 20:35 ; Admin Dose 40 MG; Start 03/05/17 at 21:00 [facility] [place]OVES Mar 06, 2017 12:12
== END 2017-03-06 11:50 | disposition left against medical advice (07) | DRG 251 ==
LOC: E/R 04:38 → ICU 13:34 → SDS 13:50 → CCL 13:50 → UNDOFXSDCSVC 15:35 → UNDOFXSDCACCOM 15:35 → ICU 15:35 → CCL 15:36 → ICU 15:36 → TEL 03-04 23:01
PROVIDERS: ADMIT Family Medicine; ATTEND Family Medicine
PROC: 02703ZZ Dilation of Coronary Artery, One Artery, Percutaneous Approach (ICD-10-PCS; principal; 2017-03-03 14:10)
PROC: B211YZZ Fluoroscopy of Multiple Coronary Arteries using Other Contrast (ICD-10-PCS; 2017-03-03 14:10)
DX: I21.4 Non-ST elevation (NSTEMI) myocardial infarction (principal); I47.2 Ventricular tachycardia; N17.9 Acute kidney failure, unspecified; I95.9 Hypotension, unspecified; E83.9 Disorder of mineral metabolism, unspecified; I13.10 Hypertensive heart and chronic kidney disease without heart failure, with stage 1 through stage 4 chronic kidney disease, or unspecified chronic kidney disease; L76.32 Postprocedural hematoma of skin and subcutaneous tissue following other procedure; N18.9 Chronic kidney disease, unspecified; R00.1 Bradycardia, unspecified; D72.829 Elevated white blood cell count, unspecified; I25.10 Atherosclerotic heart disease of native coronary artery without angina pectoris; D64.9 Anemia, unspecified; M89.9 Disorder of bone, unspecified; F17.210 Nicotine dependence, cigarettes, uncomplicated; Y84.0 Cardiac catheterization as the cause of abnormal reaction of the patient, or of later complication, without mention of misadventure at the time of the procedure; Y92.239 Unspecified place in hospital as the place of occurrence of the external cause; Z95.5 Presence of coronary angioplasty implant and graft; Z90.5 Acquired absence of kidney; E78.5 Hyperlipidemia, unspecified
CPT/HCPCS: 36415; 71010; 76775; 80048; 80053; 80061; 82550; 82553; 83036; 83735; 83880; 84100; 84439; 84443; 84484; 85025; 85610; 85730; 87081; 92920; 93005; 93306; 93458; 96374; 96375; 96376; A4310; C1725; C1769; C1887; C1894; J0461; J0583; J1327; J1644; J2250; J2270; J2405; J3010; J7030; J7040